=== PATIENT | male | born 1970 | race Asian ===

== ENCOUNTER 2020-02-27 09:53 | Outpatient (CLI) | payer OTHER ==
[2020-02-27 10:26] LABS: PLATELET COUNT 244 K/uL (142-355)
== END 2020-02-27 20:09 | disposition home or self-care (01) ==
LOC: LABW 09:53
PROVIDERS: Internal Medicine
DX: E11.9 Type 2 diabetes mellitus without complications (principal); I10 Essential (primary) hypertension; E78.5 Hyperlipidemia, unspecified; R71.8 Other abnormality of red blood cells; Z12.5 Encounter for screening for malignant neoplasm of prostate
CPT/HCPCS: 36415; 80053; 80061; 81000; 82043; 82570; 83036; 83540; 84153; 84439; 84443; 85027

== ENCOUNTER 2020-07-08 12:30 | Day surgery (SDC) | payer OTHER | END 2020-07-08 14:51 | disposition home or self-care (01) | LOC: OR 12:30 | PROC: 0DBN8ZZ Excision of Sigmoid Colon, Via Natural or Artificial Opening Endoscopic (ICD-10-PCS; principal; 2020-07-08) | DX: K63.5 Polyp of colon (principal); K64.8 Other hemorrhoids; Z12.11 Encounter for screening for malignant neoplasm of colon | CPT/HCPCS: J2704; J7120 ==

== ENCOUNTER 2020-11-03 14:09 | Outpatient (CLI) | payer OTHER | END 2020-11-03 21:58 | disposition home or self-care (01) | LOC: INF 14:09 | PROVIDERS: ATTEND Internal Medicine Endocrinology, Diabetes & Metabolism | DX: Z23 Encounter for immunization (principal) | CPT/HCPCS: 96372 ==

== ENCOUNTER 2020-12-01 09:34 | Outpatient (CLI) | payer OTHER | END 2020-12-01 23:04 | disposition home or self-care (01) | LOC: INF 09:34 | PROVIDERS: ATTEND Internal Medicine Endocrinology, Diabetes & Metabolism | DX: Z23 Encounter for immunization (principal) | CPT/HCPCS: 96372 ==